=== PATIENT | female | born 1935 ===

== ENCOUNTER 2017-08-03 09:58 | Outpatient (CLI) | payer OTHER ==
[~2017-08-03 09:58] MED LIST: CIPRO500 MG PO; DIOVAN160 M1 PO; NOVOLOG100 U/ML SQ; PROTONIX20 MG PO; ZANTAC300 MG PO; ZOCOR20 MG PO; ZOFRAN4 MG PO
== END 2017-08-03 10:04 | disposition home or self-care (01) ==
LOC: RAD 09:58
DX: S42.222A 2-part displaced fracture of surgical neck of left humerus, initial encounter for closed fracture (principal)

== ENCOUNTER → 2017-09-16 | Outpatient (CLI) | payer OTHER | END | disposition home or self-care (01) | LOC: RAD 17:09 | DX: S42.222D 2-part displaced fracture of surgical neck of left humerus, subsequent encounter for fracture with routine healing (principal) ==

== ENCOUNTER 2017-12-09 17:22 | Outpatient (CLI) | payer OTHER | END 2017-12-09 17:47 | disposition home or self-care (01) | LOC: RAD 17:22 | DX: S42.222D 2-part displaced fracture of surgical neck of left humerus, subsequent encounter for fracture with routine healing (principal) ==

== ENCOUNTER → 2018-03-10 | Outpatient (CLI) | payer OTHER | END | disposition home or self-care (01) | LOC: NUCLEAR 08:00 | DX: I50.32 Chronic diastolic (congestive) heart failure (principal); I51.3 Intracardiac thrombosis, not elsewhere classified ==

== ENCOUNTER → 2018-09-30 | Outpatient (CLI) | payer OTHER | END | disposition home or self-care (01) | LOC: NUCLEAR 08:00 | DX: I65.21 Occlusion and stenosis of right carotid artery (principal) ==

== ENCOUNTER → 2019-09-09 | Emergency (ER) | payer OTHER ==
[~2019-09-09] VITALS: Ht 152.4 cm; Wt 54.4 kg
== END | disposition home or self-care (01) ==
LOC: ER 12:03
DX: G45.8 Other transient cerebral ischemic attacks and related syndromes (principal)

== ENCOUNTER 2019-09-10 10:07 | Inpatient (IN) | payer OTHER ==
[~2019-09-10] VITALS: Ht 152.4 cm; Wt 54.4 kg
--- NOTE | 2019-09-10 10:26 | NUR ---
HIJA REFIERE QUE LA PACIENTE NO PUEDE HABLAR Y DEBILIDAD DEL BRAZO DERECHO DESDE [address]AS [address]. SE OBSERVA ALERTA, ORIENTADA X3, CONCIENTE, DEBILIDAD DEL BRAZO DERECHO Y PIERNA DERECHA, DESVIACION DE LA COMISURA LABIAL DERECHA, AFACIA Y SIGUE COMANDOS.
--- NOTE | 2019-09-10 10:37 | NUR ---
RN ROPER FRANTZ MUESTRAS DE ARIANA BAJO MEDIDAS ASEPTICAS, LIZY ORDEN MEDICA, ORIENTA A PACIENTE Y FAMILIAR SOBRE PROCEDIMIENTO, VERBALIZA ENTENDER.
== END 2019-09-14 18:57 | disposition home or self-care (01) | DRG 64 ==
LOC: ER 10:07 → SEC-K 14:04 → MEDJ 14:04 → SEC-K 19:20 → MEDJ 20:16
PROVIDERS: ADMIT Internal Medicine
PROC: B030ZZZ Magnetic Resonance Imaging (MRI) of Brain (ICD-10-PCS; principal; 2019-09-10)
PROC: BW28ZZZ Computerized Tomography (CT Scan) of Head (ICD-10-PCS; 2019-09-10)
PROC: B345ZZZ Ultrasonography of Bilateral Common Carotid Arteries (ICD-10-PCS; 2019-09-10)
PROC: B246ZZZ Ultrasonography of Right and Left Heart (ICD-10-PCS; 2019-09-10)
PROC: 4A12X4Z Monitoring of Cardiac Electrical Activity, External Approach (ICD-10-PCS; 2019-09-10)
DX: I63.542 Cerebral infarction due to unspecified occlusion or stenosis of left cerebellar artery (principal); I50.43 Acute on chronic combined systolic (congestive) and diastolic (congestive) heart failure; I63.231 Cerebral infarction due to unspecified occlusion or stenosis of right carotid arteries; I13.0 Hypertensive heart and chronic kidney disease with heart failure and stage 1 through stage 4 chronic kidney disease, or unspecified chronic kidney disease; I69.314 Frontal lobe and executive function deficit following cerebral infarction; I69.320 Aphasia following cerebral infarction; I67.89 Other cerebrovascular disease; D63.8 Anemia in other chronic diseases classified elsewhere; I77.1 Stricture of artery; I11.0 Hypertensive heart disease with heart failure; I08.1 Rheumatic disorders of both mitral and tricuspid valves; E11.22 Type 2 diabetes mellitus with diabetic chronic kidney disease; N18.2 Chronic kidney disease, stage 2 (mild); R29.702 NIHSS score 2; Z79.4 Long term (current) use of insulin; Z79.01 Long term (current) use of anticoagulants
CPT/HCPCS: 70544

== ENCOUNTER 2020-07-15 23:46 | Inpatient (IN) | payer OTHER ==
[~2020-07-15] VITALS: Ht 152.4 cm; Wt 62.6 kg
--- NOTE | 2020-07-15 23:50 | NUR ---
PACIENTE QUE LLEGA EN COMPANIA DE PESONAL DE EMERGENCIAS MEDICAS SENTADA CON NON REBREATHING MASK SATURADO 85% CON TAQUIPNEA, SE REALIZA TRIAGE Y SE COLOCA EN AREA DE CRITICO C-3 SE CONECTA A MONITOR CARDIACO Y OXIMETRIA DE PULSO. PTE EVALUADA POR EL DR. ZEPEDA QUIEN ORDENA [place]. NUEVO.
--- NOTE | 2020-07-16 00:15 | NUR ---
SE ORIENTA AL PACIENTE SOBRE EL TX. SE EXTRAEN MUESTRAS DE ARIANA BAJO MEDIDAS ASEPTICAS SE ROTULAN Y ENVIAN AL LABORATORIO. SE CANALIZA Y ADMINISTRA MEDICAMENTOS LIZY ORDEN MEDICA. CXR PORTABLE NOTIFICADA Y REALIZADA. ABGS REALIZADO POR MR. BERUMEN. SE INSERTA JOSEPH CATETER DRENANDO UA EN POCA CANTIDAD AMARILLO LACIE. SE MANTIENE SENTADA CON NON REBREATHING MASK.
--- NOTE | 2020-07-16 00:55 | NUR ---
PTE RE EVALUADA POR EL DR. MARKS Y CONSULTADA CON MEDICINA INTERNA. DR. CLEO ARMSTRONG.
--- NOTE | 2020-07-16 07:41 | NUR ---
0700 SE RECIBE PTE FEMENINA MAYOR DE EDADA, ALERTA Y ORIENTADA EN LAS MAAYA ESFERAS EN CAMA #3 DE UNIDAD DE CRITICO. PTE CONECTADA A MONITOR CARDIACO Y OXIMETRIA DE PULSO. SE OBSERVA ASISTIDA RESPIRATORIAMENTE CON NON REBREATHING MASK AL 100% SATURANDO AL 97%. PTE NO REFIERE DOLOR AL MOMENTO, EN POSICION SEMISENTADA. VENOPUNCION PATENTE X2 EN MANO Y BRAZO L+, LIBRES DE EDEMA Y ERITEMA; RECIBIENDO TERAPIA DE IVFS 0.9NSS BAJANDO A 80ML/HR Y TRIDIL 50MG/250 D5WML BAJANDO A 3ML/HR. SE OSBERVA PTE CON SONDA URINARIA A GRAVEDAD DRENANDO EGRESO DE ORINA COLOR AMARILLO LACIE CON APROXIMADAMENTE 50ML. PENDIENTE MUESTRAS DE LABORATORIO A LAS 8AM, CONSULTA CON Y DIONICIO (NOTIFICADOS A DevinHALIE). SE ADAM Y REPORTAN S/V Y SE MANTIENE BAJO OBSERVACION POR CAMBIOS EN SALES CONDICION.
--- NOTE | 2020-07-16 11:41 | NUR ---
DR.P.GARCIA RODRIGUEZ PTE.
== END 2020-07-23 23:34 | disposition home or self-care (01) | DRG 189 ==
LOC: ER 23:46 → ICU-2 07-16 12:37 → MEDI 07-21 13:10
PROVIDERS: ADMIT Internal Medicine; ATTEND Internal Medicine
PROC: B24BZZZ Ultrasonography of Heart with Aorta (ICD-10-PCS; 2020-07-16)
PROC: BW24ZZZ Computerized Tomography (CT Scan) of Chest and Abdomen (ICD-10-PCS; 2020-07-16)
PROC: 30233N1 Transfusion of Nonautologous Red Blood Cells into Peripheral Vein, Percutaneous Approach (ICD-10-PCS; principal; 2020-07-18)
DX: J81.0 Acute pulmonary edema (principal); J91.8 Pleural effusion in other conditions classified elsewhere; E87.2 Acidosis; E11.22 Type 2 diabetes mellitus with diabetic chronic kidney disease; E11.65 Type 2 diabetes mellitus with hyperglycemia; N18.9 Chronic kidney disease, unspecified; I10 Essential (primary) hypertension; D63.1 Anemia in chronic kidney disease; Z79.4 Long term (current) use of insulin; Z99.89 Dependence on other enabling machines and devices; R09.02 Hypoxemia

== ENCOUNTER 2020-07-26 02:52 | Inpatient (IN) | payer OTHER ==
[~2020-07-26] VITALS: Ht 121.9 cm; Wt 5.0 kg
[2020-07-27] MEDS ORDERED: AMLODIPINE BESYL5 MG (08:15)
[2020-07-27] MEDS ORDERED: LEVOCETIRIZINE D5 MG (08:16)
[2020-07-27] MEDS ORDERED: CARVEDILOL3.125 M1 (08:16)
[2020-07-27] MEDS ORDERED: ACID CONTROLLER20 MG (08:16)
== END 2020-07-29 21:13 | DRG 307 ==
LOC: ER 02:52 → MEDJ 13:25
PROVIDERS: ADMIT Internal Medicine; ATTEND Internal Medicine
DX: I34.0 Nonrheumatic mitral (valve) insufficiency (principal); J81.1 Chronic pulmonary edema; N17.9 Acute kidney failure, unspecified; E87.2 Acidosis; I13.10 Hypertensive heart and chronic kidney disease without heart failure, with stage 1 through stage 4 chronic kidney disease, or unspecified chronic kidney disease; E11.22 Type 2 diabetes mellitus with diabetic chronic kidney disease; N18.9 Chronic kidney disease, unspecified; R09.02 Hypoxemia; D63.1 Anemia in chronic kidney disease